=== PATIENT | male | born 1995 | race Caucasian/White ===

== ENCOUNTER 2017-02-02 21:55 | Emergency (ER) | payer BC ==
[~2017-02-02] VITALS: Ht 182.9 cm; Wt 91.0 kg
[2017-02-02 21:56] VITALS: BP 115/68; PULSE 115; RESP 16; TEMP 101.8; O2SAT 97
--- NOTE | 2017-02-02 22:00 | PD ---
Physical Exam Time Seen by Provider: 21:58 Narrative 21yo M c/o fever x2 days. TMAX 104.8. +Nasal congestion and body aches. Denies sore throat. Reports feeling SOB. Denies chest davis, abd pain, nausea, vomiting. Patient seen in triage. VS reviewed. Awaiting bed placement. Data Data Last Documented VS Vital Signs Date Time Temp Pulse Resp B/P Pulse Ox O2 Delivery O2 Flow Rate FiO2 02/02/17 21:56 101.8 115 16 115/68 97 Room Air MDM Supervised Visit with KELTON: Angela Barrera February 02, 2017 22:00
[2017-02-03 00:37] VITALS: TEMP 99.5
[2017-02-03] MEDS ORDERED: ZITHTAB PO (00:46)
--- NOTE | 2017-02-03 00:46 | PD ---
Physical Exam Date Seen by Provider: Feb 03, 2017 Time Seen by Provider: 00:40 Narrative GENERAL: Well-developed well-nourished male in no acute distress no respiratory distress; no stridor or hoarseness; T:99.5F SKIN: Warm and dry. HEAD: Normocephalic. EYES: No scleral icterus. No injection or drainage. ENT: Mucous membranes moist airway is patent; tympanic membranes no redness dullness or loss of landmarks; sinuses tender to percussion of the frontal and maxillary sinuses NECK: Supple, trachea midline. No JVD or lymphadenopathy. No meningismus no nuchal rigidity CARDIOVASCULAR: Regular rate and rhythm without murmurs, gallops, or rubs. RESPIRATORY: Breath sounds equal bilaterally. No accessory muscle use. GASTROINTESTINAL: Abdomen soft, non-tender, nondistended. MUSCULOSKELETAL: No cyanosis, or edema. BACK: Nontender without obvious deformity. No CVA tenderness. Data Data Last Documented VS Vital Signs Date Time Temp Pulse Resp B/P Pulse Ox O2 Delivery O2 Flow Rate FiO2 02/03/17 00:37 99.5 02/02/17 22:00 16 02/02/17 21:56 115 115/68 97 Room Air [facility] Medical Record Reviewed: Yes Supervised Visit with KELTON: Yes Differential Diagnosis Viral syndrome, sinusitis, influenza, bronchitis, pneumonia; patient is nontoxic in appearance unlikely meningitis or sepsis Narrative Course 21-year-old male with history of asthma presents to the emergency department with 2 days of sinus pressure congestion headache and fever. No neck pain or stiffness no shortness of breath or productive cough no wheezing or exacerbation of asthma. Patient used ibuprofen at 9 PM for fever reportedly of 10 4F. The day before temperature was 100F. Patient denies other concerns or complaints. Patient's had myalgias and arthralgias. No chest pain no pleuritic pain no abdominal pain no nausea no vomiting no diarrhea no dysuria frequency urgency flank pain or hematuria also no skin rash or joint pain or swelling. Patient will be started on oral antibiotic and encouraged to follow-up with primary care provider. Diagnosis Primary Impression: Sinusitis, acute Qualified Code: J01.00 - Acute non-recurrent maxillary sinusitis Referrals: Primary Care Physician 2 days Patient Instructions: General Instructions Additional Instruction: Increase fluid hydration Monitor temperature every 4 hours with thermometer and take acetaminophen/ Tylenol every 4 hours for fever 100.4F or greater and/or ibuprofen/Advil/ Motrin may take up to 600 mg of ibuprofen every 6 hours or 800 mg of ibuprofen every 8 hours for fever 100.4F or greater or for pain associated with inflammation Complete course of antibiotic as prescribed May use [id number] Afrin nasal decongestant spray per package directions for up to 2-3 days avoid prolonged use to avoid rebound congestion Follow-up with primary care provider Return to the emergency department for any concerns or change in condition Med/Other Pt SpecificInfo: Prescription(s) given Scripts Azithromycin (Zithromax Z-Vin)250 Mg [id number] Mg PO DIRECTED #1 DSPK Ref 0 500 MG (2 tabs) day 1, then 1 tab days 2-5. Prov:Rebecca Plascencia MD 02/03/17 Disposition: 01 DISCHARGE HOME Condition: Stable Rebecca Plascencia MD Feb 03, 2017 00:46
[2017-02-03] MEDS ORDERED: AZITHROMYCIN 250 MG TAB PO ONE (01:00)
== END 2017-02-03 01:18 | disposition home or self-care (01) ==
LOC: NEPC 21:55
DX: J01.90 Acute sinusitis, unspecified (principal)
CPT/HCPCS: 99283

== ENCOUNTER 2017-02-04 17:14 | Emergency (ER) | payer BC ==
[~2017-02-04] VITALS: Ht 182.9 cm; Wt 105.1 kg
[~2017-02-04 17:14] MED LIST: ZITHTAB PO
[2017-02-04 17:19] VITALS: BP 130/80; PULSE 95; RESP 16; TEMP 100.4; O2SAT 99
--- NOTE | 2017-02-04 17:40 | PD ---
HPI Chief Complaint: Cold / Flu Symptoms Time Seen by Provider: 17:38 Travel History International Travel<30 days: No Contact w/Intl Traveler<30days: No Traveled to known affect area: No History of Present Illness HPI 21-year-old male with no significant past medical history presents to the emergency room for evaluation of fever. Patient was seen in the emergency room 2 days ago for the same. He was diagnosed with sinusitis and discharged with prescription for azithromycin. He has been taking his medication as prescribed ; he is on day 2 of the pack. Patient states he is concerned because he has had persistent fevers of 101 at home since starting the antibiotics. He came straight to the emergency room where thermometer read significantly less making him believe that his thermometer was inaccurate. Symptoms originally started 3 days ago and include fever with a maximum temperature of 104.8, malaise, body aches, and congestion. Patient denies cough, shortness breath, chest pain, abdominal pain, nausea, vomiting. PFSH Past Medical History Diminished Hearing: No Tetanus Vaccination: Unknown Social History Alcohol Use: No Tobacco Use: No Substance Use: No Allergies-Medications (Allergen,Severity, Reaction): Coded Allergies: No Known Allergies (Unverified , 02/04/17) Reported Meds & Prescriptions Reported Meds & Active Scripts Active Zithromax Z-Vin (Azithromycin) 250 Mg Dspk 250 Mg PO DIRECTED 500 MG (2 tabs) day 1, then 1 tab days 2-5. Review of Systems Except as stated in HPI: all other systems reviewed are Neg Physical Exam Narrative GENERAL: Well-nourished, well-developed male in no acute distress. Very mildly febrile at 100.4. Ambulatory SKIN: Focused skin assessment warm/dry. HEAD: Normocephalic. EYES: No scleral icterus. No injection or drainage. ENT: Mucosa pink and moist. No erythema or exudates. No uvular edema. No uvular , palatal, or tonsillar deviation. Airway patent. EARS: Bilateral pinnae and external canals appear within normal limits. Bilateral tympanic membranes without erythema, dullness or perforation. NECK: Supple, trachea midline. No JVD or lymphadenopathy. CARDIOVASCULAR: Regular rate and rhythm without murmurs, gallops, or rubs. RESPIRATORY: Breath sounds equal bilaterally. No accessory muscle use. No crackles, rales, wheezes, or rhonchi. Data Data Last Documented VS Vital Signs Date Time Temp Pulse Resp B/P Pulse Ox O2 Delivery O2 Flow Rate FiO2 02/04/17 17:19 100.4 95 16 130/80 99 MDM Medical Decision Making Medical Screen Exam Complete: Yes Emergency Medical Condition: Yes Medical Record Reviewed: Yes Differential Diagnosis Influenza versus sinusitis versus pneumonia Narrative Course 21-year-old male presents to the emergency room for evaluation of persistent fever despite starting antibiotics 2 days ago. Patient's temperature is 100.4 degrees. He started a Z-Vin after being seen in the emergency room 2 days ago and diagnosed with sinusitis. States most of his symptoms have improved but the fever is lingering. Symptoms originally included fever, body aches, malaise , and congestion. History and physical exam are consistent with influenza which would explain why the fever has persisted despite antibiotics. Patient is nontoxic-appearing. No nuchal rigidity or increased work of breathing. Laughing, smiling. Physical exam unremarkable. Patient is outside window to receive Tamiflu and at this point testing would be of no benefit. He was reassured and told to continue Z-Vin and follow-up with his primary care physician or return if symptoms worsen. He understands and agrees to plan. Diagnosis Primary Impression: Sinusitis, acute Qualified Code: J01.10 - Acute frontal sinusitis, recurrence not specified Referrals: Primary Care Physician Patient Instructions: General Instructions Departure Forms: Tests/Procedures Additional Instructions: Rest and drink plenty of fluids. Continue Z-Vin as directed, until gone. Tylenol and Motrin for fever. Follow-up with a primary care physician. Return to the emergency room for worsening symptoms. Med/Other Pt SpecificInfo: Prescription(s) given Disposition: 01 DISCHARGE HOME Condition: Stable Sarah Thomason Feb 04, 2017 17:40
== END 2017-02-04 17:45 | disposition home or self-care (01) ==
LOC: PHEFT 17:14
DX: J01.10 Acute frontal sinusitis, unspecified (principal); R50.9 Fever, unspecified; R53.81 Other malaise; M79.1 Myalgia
CPT/HCPCS: 99283

== ENCOUNTER 2017-12-04 11:15 | Emergency (ER) | payer BC ==
[~2017-12-04] VITALS: Ht 182.9 cm; Wt 112.9 kg
[2017-12-04 11:19] VITALS: BP 138/65; PULSE 66; RESP 16; TEMP 97.4; O2SAT 98
[2017-12-04] MEDS ORDERED: CLAR5TAB9 PO (11:23)
[2017-12-04] MEDS ORDERED: PENI500T PO (12:46)
--- NOTE | 2017-12-04 12:47 | PD ---
HPI Chief Complaint: ENT Complaint Time Seen by Provider: 12:18 Travel History International Travel<30 days: No Contact w/Intl Traveler<30days: No Traveled to known affect area: No History of Present Illness HPI This is a 22-year-old male here with sore throat 3 days. Denies fever chills. No difficulty swallowing. Symptom severity is moderate. No aggravating or alleviating factors. PFSH Past Medical History Medical History: Denies Significant Hx Diminished Hearing: No Immunizations Current: Yes Tetanus Vaccination: Unknown Influenza Vaccination: No Past Surgical History Surgical History: No Previous Surgery Social History Alcohol Use: No Tobacco Use: No Substance Use: No Allergies-Medications (Allergen,Severity, Reaction): Coded Allergies: No Known Allergies (Unverified Adverse Reaction, Unknown, 12/04/17) Reported Meds & Prescriptions Reported Meds & Active Scripts Active Reported Claritin-D 12 HR (Loratadine-Pseudoephedrine 12 HR) 5-120 Mg Tab 1 Tab PO BID Review of Systems Except as stated in HPI: all other systems reviewed are Neg General / Constitutional: No: Fever HENT: Positive: Sore Throat, No: Headaches Cardiovascular: No: Chest Pain or Discomfort Respiratory: No: Shortness of Breath Gastrointestinal: No: Abdominal Pain Genitourinary: No: Dysuria Musculoskeletal: No: Pain Physical Exam Narrative GENERAL: Alert and well-appearing 22-year-old male SKIN: Warm and dry. HEAD: Atraumatic. Normocephalic. EYES: No injection or drainage. ENT: Notable pharyngeal erythema. Exudate present. No tonsillar hypertrophy. Uvula is midline. Airways patent. NECK: Trachea midline. Mild submandibular lymphadenopathy. CARDIOVASCULAR: Regular rate and rhythm. RESPIRATORY: No accessory muscle use. Clear to auscultation. Breath sounds equal bilaterally. Data Data Last Documented VS Vital Signs Date Time Temp Pulse Resp B/P (MAP) Pulse Ox O2 Delivery O2 Flow Rate FiO2 12/04/17 11:19 97.4 66 16 138/65 (89) 98 MDM Medical Decision Making Medical Screen Exam Complete: Yes Emergency Medical Condition: Yes Differential Diagnosis Strep pharyngitis, viral pharyngitis, mononucleosis Narrative Course 22-year-old male here with exudative pharyngitis. His airways patent. He is nontoxic appearing. He will be treated with antibiotics Diagnosis Primary Impression: Pharyngitis Qualified Codes: J02.9 - Acute pharyngitis, unspecified Referrals: Primary Care Physician Additional Instructions: Antibiotics as directed. Tylenol or ibuprofen for pain and fever. Drink plenty of fluids. Scripts Penicillin V Potassium (Penicillin V Potassium) 500 Mg Tab 500 MG PO BID for Infection for 10 Days, #20 TAB 0 Refills Prov: Munira Marcano 12/04/17 Disposition: 01 DISCHARGE HOME Condition: Stable Munira Marcano Dec 04, 2017 12:47
== END 2017-12-04 12:56 | disposition home or self-care (01) ==
LOC: PHEFT 11:15
DX: J02.9 Acute pharyngitis, unspecified (principal)
CPT/HCPCS: 99283